=== PATIENT | male | born 1960 | race Caucasian/White ===

== ENCOUNTER 2017-12-25 07:50 | Emergency (ER) | payer MEDICARE ==
[~2017-12-25] VITALS: Ht 167.6 cm; Wt 105.2 kg
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
--- NOTE | 2017-12-25 08:31 | NUR ---
PATIENT TAKEN TO CT VIA STRETCHER.
--- NOTE | 2017-12-25 08:44 | NUR ---
patient returned from ct.
[2017-12-25] MEDS ORDERED: TDAP [DIPH/PERTUSSIS/TET] 0.5 ML VIAL IM ONE ×2 (08:53→09:00)
--- NOTE | 2017-12-25 09:05 | NUR ---
1 staple placed on left scalp laceration. No excessive bleeding. Wound care rendered.
[2017-12-25 09:18] VITALS: BP 152/81
--- NOTE | 2017-12-25 09:21 | NUR ---
Patient discharged in [facility] in stable condition. Written and verbal after care instructions given. Patient verbalizes understanding of instruction.
== END 2017-12-25 09:19 ==
LOC: ER 07:52
DX: S01.01XA Laceration without foreign body of scalp, initial encounter (principal); E11.9 Type 2 diabetes mellitus without complications; I10 Essential (primary) hypertension; Y04.2XXA Assault by strike against or bumped into by another person, initial encounter; Y93.89 Activity, other specified; Y92.59 Other trade areas as the place of occurrence of the external cause; Y99.9 Unspecified external cause status
CPT/HCPCS: 12011; 70450; 90471; 90715; 99284; A4606; Z7610

== ENCOUNTER 2018-07-11 14:35 | Inpatient (IN) | payer MEDICARE, MEDICAID ==
[~2018-07-11] VITALS: Ht 170.2 cm; Wt 95.3 kg
[2018-07-11 15:27] LABS: BASOPHILS # (AUTO) 0.1 /CMM (0.0-0.2); BASOPHILS % (AUTO) 0.5 % (0.0-2.0); EOSINOPHILS % (AUTO) 0.3 % (0.0-6.0); HEMATOCRIT 45 % (39-51); HEMOGLOBIN 14.5 g/dL (13.5-17.5); LYMPHOCYTES # (AUTO) 1.9 /CMM (0.8-4.8); LYMPHOCYTES % (AUTO) 16.3 % (20.0-44.0); MEAN CORPUSCULAR HEMOGLOBIN 27 PG (26.0-33.0); MEAN CORPUSCULAR HGB CONC 32 g/dl (31.0-36.0); MEAN CORPUSCULAR VOLUME 82 fL (80-96); MONOCYTES # (AUTO) 0.6 /CMM (0.1-1.30); NEUTROPHILS % (AUTO) 77.9 % (43.0-81.0); PLATELET COUNT (AUTO) 372 /CMM (150-450); RDW COEFFICIENT OF VARIATION 15.5 (11.5-15.0); RED BLOOD CELL COUNT(AUTO) 5.42 MIL/uL (4.5-6.0); WHITE BLOOD COUNT (AUTO) 11.6 K/uL (4.3-11.0)
[2018-07-11] MEDS ORDERED: MORPHINE SULFATE INJ 2 MG/ML DISP.SYRIN IV ONE (15:30)
[2018-07-11] MEDS ORDERED: IV NS 0.9% 1,000 ML BAG IV ONE (15:30)
[2018-07-11] MEDS ORDERED: ONDANSETRON HCL/PF 4 MG/2 ML VIAL IVP ONE (15:30)
[2018-07-11] MEDS ORDERED: MORPHINE SULFATE INJ 4 MG/ML DISP.SYRIN ONE (15:31)
[2018-07-11] MEDS ORDERED: ONDANSETRON HCL/PF 4 MG/2 ML VIAL ONE (15:31)
[2018-07-11 15:37] LABS: CALCIUM, SERUM 8.8 mg/dL (8.5-10.1); CARBON DIOXIDE 16 mmol/L (21-32); CHLORIDE 99 mmol/L (98-107); CREATININE 1.1 mg/dL (0.6-1.3); GLUCOSE 169 mg/dL (74-106); POTASSIUM 4.1 mmol/L (3.5-5.1); SODIUM SERUM 135 mmol/L (136-145); UREA NITROGEN, BLOOD 25 mg/dL (7-18)
[2018-07-11 15:45] LABS: TROPONIN I < 0.017 ng/mL (0.00-0.056)
[2018-07-11 15:50] LABS: ALANINE AMINOTRANSFERASE 20 U/L (12-78); ALBUMIN 3.1 g/dL (3.4-5.0); ALKALINE PHOSPHATASE 85 U/L (46-116); ASPARTATE AMINOTRANSFERASE 19 U/L (15-37); BILIRUBIN,DIRECT 0.1 mg/dL (0.0-0.2); BILIRUBIN,TOTAL 0.2 mg/dL (0.2-1.0); LIPASE 183 U/L (73-393); TOTAL PROTEIN, SERUM 7.1 g/dL (6.4-8.2)
[2018-07-11] MEDS ORDERED: IOHEXOL-300 100 ML VIAL IV ONE (15:52)
[2018-07-11 15:54] LABS: APPEARANCE,URINE Clear (CLEAR); BILIRUBIN,URINE Negative (NEGATIVE); BLOOD, URINE Trace-lysed Ery/uL (NEGATIVE); COLOR,URINE Yellow (YELLOW); KETONES,URINE 40 (NEGATIVE); LEUKOCYTE ESTERASE ,URINE Negative (NEGATIVE); NITRITE, URINE Negative (NEGATIVE); PROTEIN,URINE 100 mg/dl (NEGATIVE); UGLUCOSE Negative (NEGATIVE); UROBILINOGEN,URINE 0.2 EU/dL (0.2)
[2018-07-11 15:59] LABS: BACTERIA,URINE None seen /HPF (None Seen); RBC,URINE 0-2 /HPF (0-2); SQUAMOUS EPITHELIAL CELL,UR Rare /HPF (None Seen); WBC,URINE 0-2 /HPF (0-3)
[2018-07-11 16:06] LABS: INR 0.9 (0.87-1.13)
[2018-07-11 17:08] LABS: ABG BASE EXCESS -6.8 mmol/L; ABG PCO2 27.6 mmHg (35.0-45.0); ABG PH 7.392 (7.350-7.450); ABG PO2 93.1 mmHg (75.0-100.0); AaDO2 23.6 mmHg; SITE, ABG Right Radial; VENT MODE, BG ROOM AIR
[2018-07-11 17:22] LABS: ACETAMINOPHEN < 2 ug/ml (10-30); SALICYLATE 2.6 mg/dL (2.8-20.0)
[2018-07-11] MEDS ORDERED: LISI10TA5 PO (18:18)
[2018-07-11] MEDS ORDERED: PIOG30TA10 PO (18:18)
[2018-07-11] MEDS ORDERED: GLIP5TAB13 PO (18:18)
[2018-07-11] MEDS ORDERED: METF500T6 PO (18:18)
[2018-07-11] MEDS ORDERED: LITH300T PO (18:18)
[2018-07-11 21:35] VITALS: BP 145/67
[2018-07-11] MEDS: ENOXAPARIN SODIUM 40 MG/0.4 ML DISP.SYRIN SQ SCH (23:00)
[2018-07-11] MEDS ORDERED: ONDANSETRON HCL/PF 4 MG/2 ML VIAL IVP PRN (23:00)
[2018-07-11] MEDS ORDERED: DEXTROSE 50%-WATER 50 ML DISP.SYRIN IV PRN (23:00)
[2018-07-11] MEDS ORDERED: ACETAMINOPHEN 325 MG TABLET PO PRN (23:00)
[2018-07-11] MEDS ORDERED: Z GUARD REMEDY 2 OZ OINT TP PRN (23:00)
[2018-07-11] MEDS: HYDROCODONE/APAP 10/325MG 1 EA TABLET PO PRN (23:47)
[2018-07-11] MEDS: IV NS 0.9% 1,000 ML IV PRN (23:49)
[2018-07-12] MEDS: ZOLPIDEM TARTRATE 5 MG TABLET PO PRN ×2 (00:11→01:47)
[2018-07-12] MEDS: HYDROCODONE/APAP 10/325MG 1 EA TABLET PO PRN ×4 (04:28→21:21)
[2018-07-12 06:35] LABS: BASOPHILS # (AUTO) 0.1 /CMM (0.0-0.2); BASOPHILS % (AUTO) 0.7 % (0.0-2.0); HEMATOCRIT 39 % (39-51); HEMOGLOBIN 12.7 g/dL (13.5-17.5); LYMPHOCYTES # (AUTO) 2.6 /CMM (0.8-4.8); LYMPHOCYTES % (AUTO) 33.4 % (20.0-44.0); MEAN CORPUSCULAR HEMOGLOBIN 28 PG (26.0-33.0); MEAN CORPUSCULAR HGB CONC 32 g/dl (31.0-36.0); MEAN CORPUSCULAR VOLUME 85 fL (80-96); MONOCYTES # (AUTO) 0.5 /CMM (0.1-1.30); MONOCYTES % (AUTO) 7.1 % (2.0-12.0); NEUTROPHILS # (AUTO) 4.4 /CMM (1.8-8.9); NEUTROPHILS % (AUTO) 57.8 % (43.0-81.0); RDW COEFFICIENT OF VARIATION 16.3 (11.5-15.0); RED BLOOD CELL COUNT(AUTO) 4.61 MIL/uL (4.5-6.0); WHITE BLOOD COUNT (AUTO) 7.7 K/uL (4.3-11.0)
[2018-07-12 06:44] LABS: PLATELET COUNT (AUTO) 293 /CMM (150-450)
[2018-07-12 07:04] LABS: ALBUMIN 2.8 g/dL (3.4-5.0); BILIRUBIN,TOTAL 0.5 mg/dL (0.2-1.0); CALCIUM, SERUM 7.6 mg/dL (8.5-10.1); PHOSPHORUS 3.6 mg/dL (2.5-4.9); POTASSIUM 4.4 mmol/L (3.5-5.1); TOTAL PROTEIN, SERUM 6.3 g/dL (6.4-8.2)
[2018-07-12] MEDS: BLOOD SUGAR DIAGNOSTIC 1 EACH STRIP IN SCH ×4 (07:48→21:28)
[2018-07-12 08:00] VITALS: BP 160/96
[2018-07-12] MEDS: glipiZIDE 5 MG TABLET PO SCH ×2 (08:47→17:05)
[2018-07-12] MEDS: PIOGLITAZONE HCL 15 MG TABLET PO SCH (08:47)
[2018-07-12] MEDS: LITHIUM CARBONATE (300 MG CAP) 300 MG CAPSULE PO SCH ×2 (08:48→21:21)
[2018-07-12] MEDS: LISINOPRIL (10MG) 10 MG TABLET PO SCH (08:48)
[2018-07-12] MEDS: INSULIN REGULAR, HUMAN 100 UNIT/ML 3 ML VIAL SQ PRN ×4 (09:02→21:51)
[2018-07-12 09:44] LABS: THYROID STIMULATING HORMONE 4.935 uIU/mL (0.358-3.74)
[2018-07-12 10:00] VITALS: BP 118/88
[2018-07-12 16:00] VITALS: BP 119/74
[2018-07-12] MEDS: IV NS 0.9% 1,000 ML IV PRN (17:05)
[2018-07-12 20:00] VITALS: BP 103/54
[2018-07-12] MEDS: ENOXAPARIN SODIUM 40 MG/0.4 ML DISP.SYRIN SQ SCH (22:13)
[2018-07-13] MEDS: HYDROCODONE/APAP 10/325MG 1 EA TABLET PO PRN ×4 (04:39→23:29)
[2018-07-13] MEDS: IV NS 0.9% 1,000 ML IV PRN ×2 (04:45→23:09)
[2018-07-13] MEDS: BLOOD SUGAR DIAGNOSTIC 1 EACH STRIP IN SCH ×4 (06:28→21:50)
[2018-07-13] MEDS: INSULIN REGULAR, HUMAN 100 UNIT/ML 3 ML VIAL SQ PRN ×4 (06:31→21:49)
[2018-07-13 07:37] LABS: BASOPHILS % (AUTO) 0.5 % (0.0-2.0); EOSINOPHILS % (AUTO) 3.8 % (0.0-6.0); HEMATOCRIT 38 % (39-51); HEMOGLOBIN 12.1 g/dL (13.5-17.5); LYMPHOCYTES # (AUTO) 2.1 /CMM (0.8-4.8); LYMPHOCYTES % (AUTO) 38.9 % (20.0-44.0); MEAN CORPUSCULAR HEMOGLOBIN 28 PG (26.0-33.0); MEAN CORPUSCULAR HGB CONC 32 g/dl (31.0-36.0); MEAN CORPUSCULAR VOLUME 86 fL (80-96); MONOCYTES # (AUTO) 0.3 /CMM (0.1-1.30); MONOCYTES % (AUTO) 4.9 % (2.0-12.0); NEUTROPHILS # (AUTO) 2.8 /CMM (1.8-8.9); NEUTROPHILS % (AUTO) 51.9 % (43.0-81.0); PLATELET COUNT (AUTO) 230 /CMM (150-450); RDW COEFFICIENT OF VARIATION 16.6 (11.5-15.0); RED BLOOD CELL COUNT(AUTO) 4.38 MIL/uL (4.5-6.0); WHITE BLOOD COUNT (AUTO) 5.5 K/uL (4.3-11.0)
[2018-07-13 07:43] LABS: PHOSPHORUS 3.2 mg/dL (2.5-4.9); POTASSIUM 4.6 mmol/L (3.5-5.1)
[2018-07-13 08:07] VITALS: BP 126/66
[2018-07-13] MEDS: LITHIUM CARBONATE (300 MG CAP) 300 MG CAPSULE PO SCH ×2 (08:53→21:07)
[2018-07-13] MEDS: PIOGLITAZONE HCL 15 MG TABLET PO SCH (08:54)
[2018-07-13] MEDS: LISINOPRIL (10MG) 10 MG TABLET PO SCH (08:54)
[2018-07-13] MEDS: glipiZIDE 5 MG TABLET PO SCH ×2 (08:54→17:09)
[2018-07-13 16:25] VITALS: BP 123/64
[2018-07-13 20:00] VITALS: BP 125/69
[2018-07-13] MEDS: ENOXAPARIN SODIUM 40 MG/0.4 ML DISP.SYRIN SQ SCH (22:00)
[2018-07-14] MEDS: INSULIN REGULAR, HUMAN 100 UNIT/ML 3 ML VIAL SQ PRN ×2 (06:51→12:06)
[2018-07-14] MEDS: BLOOD SUGAR DIAGNOSTIC 1 EACH STRIP IN SCH ×2 (06:52→12:02)
[2018-07-14] MEDS: LITHIUM CARBONATE (300 MG CAP) 300 MG CAPSULE PO SCH (08:01)
[2018-07-14] MEDS: LISINOPRIL (10MG) 10 MG TABLET PO SCH (08:02)
[2018-07-14] MEDS: glipiZIDE 5 MG TABLET PO SCH (08:02)
[2018-07-14] MEDS: PIOGLITAZONE HCL 15 MG TABLET PO SCH (08:03)
[2018-07-14] MEDS: HYDROCODONE/APAP 10/325MG 1 EA TABLET PO PRN (08:04)
[2018-07-14 08:28] VITALS: BP 131/68
[2018-07-14 08:36] LABS: BASOPHILS % (AUTO) 0.5 % (0.0-2.0); EOSINOPHILS % (AUTO) 5.7 % (0.0-6.0); HEMATOCRIT 40 % (39-51); HEMOGLOBIN 12.6 g/dL (13.5-17.5); LYMPHOCYTES % (AUTO) 32.7 % (20.0-44.0); MEAN CORPUSCULAR HEMOGLOBIN 27 PG (26.0-33.0); MEAN CORPUSCULAR HGB CONC 32 g/dl (31.0-36.0); MEAN CORPUSCULAR VOLUME 86 fL (80-96); MONOCYTES # (AUTO) 0.3 /CMM (0.1-1.30); MONOCYTES % (AUTO) 4.5 % (2.0-12.0); NEUTROPHILS # (AUTO) 3.5 /CMM (1.8-8.9); NEUTROPHILS % (AUTO) 56.6 % (43.0-81.0); PLATELET COUNT (AUTO) 237 /CMM (150-450); RDW COEFFICIENT OF VARIATION 16.1 (11.5-15.0); RED BLOOD CELL COUNT(AUTO) 4.59 MIL/uL (4.5-6.0); WHITE BLOOD COUNT (AUTO) 6.2 K/uL (4.3-11.0)
[2018-07-14 08:48] LABS: CALCIUM, SERUM 8.5 mg/dL (8.5-10.1); POTASSIUM 4.4 mmol/L (3.5-5.1)
[2018-07-14] MEDS ORDERED: INSU100V28 SQ (12:19)
== END 2018-07-14 14:30 | DRG 640 ==
LOC: ER 14:42 → TELE1 20:24 → MEDSG1 22:57 → MEDSG2 07-12 09:35
PROVIDERS: ADMIT Nurse Practitioner Acute Care; ATTEND Nurse Practitioner Acute Care
DX: E87.2 Acidosis (principal); N17.0 Acute kidney failure with tubular necrosis; T38.3X5A Adverse effect of insulin and oral hypoglycemic [antidiabetic] drugs, initial encounter; E87.1 Hypo-osmolality and hyponatremia; G89.4 Chronic pain syndrome; D72.829 Elevated white blood cell count, unspecified; Z79.84 Long term (current) use of oral hypoglycemic drugs; F11.10 Opioid abuse, uncomplicated; F31.9 Bipolar disorder, unspecified; E11.9 Type 2 diabetes mellitus without complications; K80.20 Calculus of gallbladder without cholecystitis without obstruction; I10 Essential (primary) hypertension; H91.90 Unspecified hearing loss, unspecified ear
CPT/HCPCS: 36415; 36600; 70450-TC; 71045-TC; 80048-TC; 80053-TC; 80061-TC; 80076-TC; 81000-TC; 82803-TC; 82962-TC; 83605-TC; 83690-TC; 83735-TC; 84100-TC; 84443-TC; 84484-TC; 85025-TC; 85730-TC; 87081-TC; 87086-TC; 93307-TC; A4606; G0480; J1650; J1815; J2270; J2405; J7030; Q9967; Z7610